=== PATIENT | female | born 1940 | race Hispanic/Latino ===

== ENCOUNTER 2017-03-04 12:32 | Outpatient (CLI) | payer MEDICARE, OTHER ==
--- NOTE | 2017-03-04 13:48 | Mammography Report ---
Screening mammogram: Left breast cancer surgery with radiation therapy and tamoxifen. There is architectural distortion related to surgery in the upper lateral left breast. Scattered benign-appearing calcifications are noted. There is mild skin thickening in the inferomedial breast. The right breast pattern is mostly fatty replaced and unremarkable. Compared to her prior examinations in 2015 and 2016 there are no interval changes identified. CAD used. Impression: Stable breast pattern post surgery/therapy left breast. Recommendation: Annual mammogram followup. BI-RADS CATEGORY: 2 = Benign ACR BI-RADS MAMMOGRAPHIC CODES: 0 = Needs additional imaging evaluation; 1 = Negative; 2 = Benign; 3 = Probably benign; 4 = Suspicious; 5 = Malignant; 6 = Known biopsy-proven malignancy COMMENT: 1. Dense breast tissue, i.e., adenosis, fibrocystic changes, etc., may obscure an underlying neoplasm. 2. Approximately 10% of cancers are not detected with mammography. 3. A negative mammography report should not delay biopsy if a clinically suspicious mass is present.
== END 2017-03-04 12:33 | disposition home or self-care (01) ==
LOC: SPVWC 12:32
PROVIDERS: ATTEND Internal Medicine
DX: Z12.31 Encounter for screening mammogram for malignant neoplasm of breast (principal); Z98.890 Other specified postprocedural states
CPT/HCPCS: 77067; G0202

== ENCOUNTER 2017-10-03 13:20 | Outpatient (CLI) | payer MEDICARE, OTHER ==
--- NOTE | 2017-10-03 15:13 | Mammography Report ---
BONE DEXA:10/03/17 13:20:00 CLINICAL: Postmenopausal. COMPARISON: 09/21/15 and 11/27/10 TECHNIQUE: Two site bone DEXA performed on an Hologic scanner. FINDINGS: The average BMD of the lumbar spine L1 and L2 is 1.104g/cm squared with a T-score of +1.1 and a Z-score of +3.4. This compares to 1.043g/cm squared on the last exam and represents a +5.9% change from the previous study and a +3.7% change from baseline. The average BMD of the left hip is 0.823g/cm squared with a T-score of -1.0 and a Z-score of +0.8. This compares to 0.804g/cm squared on the last exam and represents a +2.3% change from the previous study and a +0.9% change from baseline. IMPRESSION: 1. WHO classification: Normal with average fracture risk based on spine measurements. Modest improvement in spine BMD compared to previous exams. 2. WHO classification: Osteopenia with increased fracture risk based on left hip measurements. A slight improvement in left hip BMD compared to previous exams. RECOMMENDATION: Clinical correlation and routine screening. DEFINITIONS: BMD = Bone Mineral Density T-score = BMD related to mean peak bone mass of young adult (mean expressed in Standard Deviation) Z-score = Age matched BMD expressed in SD World Health Organization (WHO) Diagnostic Criteria Normal T-score > -1 SD Osteopenia T-score between -1 and -2.4 SD Osteoporosis T-score -2.5 SD or below NOTE: BMD is not the only risk factor for fracture; also consider factors such as the patient's age, risk of falling, previous osteoporotic fracture, family history of osteoporotic fractures, current smoker, and low body weight. Z-scores are not calculated if >80 years of age.
== END 2017-10-03 13:21 | disposition home or self-care (01) ==
LOC: SPVWC 13:20
PROVIDERS: ATTEND Internal Medicine
DX: M81.8 Other osteoporosis without current pathological fracture (principal); M85.88 Other specified disorders of bone density and structure, other site; Z78.0 Asymptomatic menopausal state
CPT/HCPCS: 77080

== ENCOUNTER 2018-03-11 09:52 | Outpatient (CLI) | payer MEDICARE, OTHER ==
--- NOTE | 2018-03-11 15:00 | Mammography Report ---
BILATERAL DIGITAL SCREENING MAMMOGRAM WITH CAD: 03/11/18 09:52:00 CLINICAL: Routine screening.Breast cancer survivor status post left partial mastectomy and radiation therapy. COMPARISON:03/04/17 FINDINGS: The right breast is mostly fatty in the left breast is heterogeneously dense, which may obscure small masses. The left breast is smaller than the right with stable upper outer postsurgical scar. Bilateral scattered benign calcifications. No mass, suspicious architectural distortion or suspicious calcifications. IMPRESSION: No mammographic evidence of malignancy. BI-RADS CATEGORY: 2 -- Benign RECOMMENDATION: Routine mammographic screening in one year. COMMENT: Patient follow-up letters are generated via our [employer] application.
== END 2018-03-11 09:53 | disposition home or self-care (01) ==
LOC: SPVWC 09:52
PROVIDERS: ATTEND Internal Medicine
DX: Z12.31 Encounter for screening mammogram for malignant neoplasm of breast (principal)
CPT/HCPCS: 77067

== ENCOUNTER 2019-03-24 13:53 | Outpatient (CLI) | payer MEDICARE, OTHER ==
--- NOTE | 2019-03-24 16:05 | Mammography Report ---
BILATERAL DIGITAL SCREENING MAMMOGRAM WITH CAD INDICATION: Routine screening mammography. Breast cancer survivor status post left partial mastectomy with radiation therapy. TECHNIQUE: Digital bilateral 2D mammography was obtained in the craniocaudal and mediolateral obliq ue projections. This examination was interpreted with the benefit of Computer-Aided Detection analysi s. COMPARISON: 03/11/2018 FINDINGS: Breast Density: The breasts are almost entirely fatty. No mass, architectural distortion or suspicious calcifications. The left breast is smaller than the r ight with benign upper outer postsurgical scar. Bilateral benign calcifications. IMPRESSION:No mammographic evidence of malignancy. BI-RADS Category 2: Benign. No mammographic evidence of malignancy. Recommend routine screening ma mmography in one year. A "normal" or negative report should not discourage follow up or biopsy of a clinically significant f inding. A written summary of these findings will be mailed to the patient. The patient will be entered into a mammography reporting system which will generate a reminder letter for the patient's next appointmen t at the appropriate interval. The [employer] recommends yearly mammograms starting at age 40 and continuing as l fe as a woman is in good health. Breast MRI is recommended for women with an approximate 20-25% or greater lifetime risk of breast cancer, including women with a strong family history of breast or ova jeison cancer or who have been treated for Hodgkin's disease. Signer Name: Kenn Solano MD Signed: 03/24/2019 4:00 PM Workstation Name: [id number]
== END 2019-03-24 13:54 | disposition home or self-care (01) ==
LOC: SPVWC 13:53
PROVIDERS: ATTEND Internal Medicine
DX: Z12.31 Encounter for screening mammogram for malignant neoplasm of breast (principal)
CPT/HCPCS: 77067